=== PATIENT | male | born 1960 | race Caucasian/White ===

== ENCOUNTER 2018-10-27 12:20 | Emergency (ER) | payer OTHER ==
[~2018-10-27] VITALS: Ht 172.7 cm; Wt 95.3 kg
[~2018-10-27 12:20] MED LIST: ALBUTEROL SULF8.5 GM INH; AZITHROMYCIN250 MG ORAL; PROMETHAZINE-C118 M1 ORAL
[2018-10-27] MEDS ORDERED: ASPIR 8181 MG ORAL (12:29)
[2018-10-27] MEDS ORDERED: TENORMIN100 MG ORAL (12:29)
[2018-10-27 12:40] VITALS: BP 146/90
--- NOTE | 2018-10-27 12:41 | NUR ---
ED Nurse Note: pt walked in with c/o left leg pain, denies trauma. pt stated it started yesterday when he suddently feel like a electrical pain on the left leg, pt denies fall. seen by sarah mccrary. 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 will continue to monitor.
--- NOTE | 2018-10-27 13:00 | NUR ---
ED Nurse Note: US at the bedside
--- NOTE | 2018-10-27 13:15 | Diagnostic Imaging Report ---
Indication: Left leg pain for one day Technique: Grayscale and duplex images of the left lower extremity veins Comparison: none Findings: Grayscale duplex images demonstrate no evidence of intraluminal thrombus. Normal phasic Doppler waveforms, demonstrating normal augmentation response and no evidence of valvular insufficiency. Normal compressibility. Impression: Negative for evidence of left lower extremity venous thrombosis This agrees with the preliminary interpretation provided overnight by [facility].
--- NOTE | 2018-10-27 13:26 | Emergency Room Report ---
History of Present Illness General Chief Complaint: Pain Source: Patient Present Illness HPI 58-year-old male presents to the emergency department complaining of 8 out of 10 severity localized left posterior calf pain since yesterday. Patient reports that he was walking down a few stairs and near the bottom he took a step and felt a sharp electrical stabbing pain in the posterior calf he states the pain became persistent and his muscles felt tight. Patient reports initially he was experiencing the pain only when standing or walking but he states this morning he is also noticing it at rest as well. He reports some swelling in the calf denies swelling of the foot or ankle he denies appreciable trauma or fall he has a history of high blood pressure and hyperlipidemia he takes atorvastatin and metoprolol he also takes aspirin daily. Chest pain or shortness of breath. Denies paresthesias. Denies smoking hx, no recent travel, and denies erythema or changes to the skin color or temperature. No aggravating or relieving factors other than those mentioned. Allergies: Coded Allergies: No Known Allergies (Verified Allergy, Mild, 08/07/07) Patient History Past Medical History: see triage record Past Surgical History: none Pertinent Family History: none Reviewed Nursing Documentation: PMH: Agreed; PSxH: Agreed Nursing Documentation-PMH Past Medical History: No History, Except For Hx Hypertension: Yes Review of Systems All Other Systems: negative except mentioned in HPI Physical Exam Vital Signs Date Time Temp Pulse Resp B/P (MAP) Pulse Ox O2 Delivery O2 Flow Rate FiO2 10/27/18 12:26 98.2 71 19 146/90 (108) 95 Room Air Sp02 EP Interpretation: reviewed, normal General Appearance: no apparent distress, alert, GCS 15, non-toxic Head: normocephalic, atraumatic Eyes: bilateral eye normal inspection, bilateral eye PERRL ENT: hearing grossly normal, normal voice Neck: full range of motion Respiratory: chest non-tender, lungs clear, normal breath sounds, no respiratory distress, no wheezing, speaking full sentences Cardiovascular #1: regular rate, rhythm, no edema, normal capillary refill Cardiovascular #2: 2+ dorsalis pedis (R) - also 2+ and equal post. tib bilaterally, 2+ dorsalis pedis (L) Genitourinary: normal inspection Musculoskeletal: back normal, gait/station normal, normal range of motion, other - Positive bianca's sign. no visible calf swelling but the left calf was tight/contracted compared to the right, no erythema, no warmth, no obvious deformities, no pulsatile mass in the popliteal area. Neurologic: alert, oriented x3, responsive, motor strength/tone normal, sensory intact, speech normal, grossly normal Psychiatric: judgement/insight normal Skin: normal color Lymphatic: no adenopathy Medical Decision Making PA Attestation Dr. Dick Is my supervising Physician whom patient management has been discussed with. Diagnostic Impression: Primary Impression: Claudication of left lower extremity Additional Impression: Muscle spasm ER Course 58-year-old male presents to the emergency department complaining of 8 out of 10 severity localized left posterior calf pain since yesterday. Patient reports that he was walking down a few stairs and near the bottom he took a step and felt a sharp electrical stabbing pain in the posterior calf he states the pain became persistent and his muscles felt tight. Patient reports initially he was experiencing the pain only when standing or walking but he states this morning he is also noticing it at rest as well. He reports some swelling in the calf denies swelling of the foot or ankle he denies appreciable trauma or fall he has a history of high blood pressure and hyperlipidemia he takes atorvastatin and metoprolol he also takes aspirin daily. Chest pain or shortness of breath. Denies paresthesias. Denies smoking hx, no recent travel, and denies erythema or changes to the skin color or temperature. No aggravating or relieving factors other than those mentioned. Ddx considered but are not limited to Cellulitis, DVT, varicose vein,popliteal artery aneurysm, electrolyte imbalance, PAD,Venous insufficiency just to name a few. Vital signs: are WNL, pt. is afebrile H&PE are most consistent with muscle cramp/spasm due to HPI and PE findings must r/o DVT. ORDERS: - LE r/o DVT: Negative for DVT ED INTERVENTIONS: -Pt. declines pain medication. -I do not identify an emergent condition at this time. With current presentation , pt. is stable for close outpatient follow up and conservative treatment. D/ w pt. to return promptly to ED with worsening or new symptoms.- Pt. verbalizes' understanding and agreement with proposed treatment plan.proposed treatment plan. DISCHARGE: At this time pt. is stable for d/c to home. Will provide printed patient care instructions, and any necessary prescriptions. Care plan and follow up instructions have been discussed with the patient prior to discharge. CT/MRI/US Diagnostic Results CT/MRI/US Diagnostic Results : Imaging Test Ordered: Venous Duplex US of the Left LE Impression Negative for DVT, no decrease arterial flow was noted although focus was on the venous system.- Per radiology Last Vital Signs Date Time Temp Pulse Resp B/P (MAP) Pulse Ox O2 Delivery O2 Flow Rate FiO2 10/27/18 12:40 98.2 71 19 146/90 95 Room Air Disposition: HOME, SELF-CARE Condition: Stable Scripts Compression Socks, Medium (FUTURO RESTORING) 1 Each Each EACH PRN for claudication, #1 Prov: Miriam Ren 10/27/18 Ibuprofen* (MOTRIN*) 400 Mg Tablet 400 MG ORAL THREE TIMES A DAY for 7 Days, #21 TAB 0 Refills Prov: Miriam Ren 10/27/18 Methocarbamol* (ROBAXIN-750*) 750 Mg Tablet 750 MG PO QID for 7 Days, #28 TAB 0 Refills Prov: Miriam Ren 10/27/18 Referrals: NON PHYSICIAN (PCP) Patient Instructions: Muscle Cramps and Spasms, [id number], Peripheral Vascular Disease Additional Instructions: Take medications as directed. Follow up with a Primary Care Provider in 3-5 days, even if your symptoms have resolved. --Please review list of primary care clinics, if you do not already have a primary care provider Return sooner to ED if new symptoms occur, or current symptoms become worse. Do not drink alcohol, drive, or operate heavy machinery while taking Robaxin ( Muscle Relaxers) as this may cause drowsiness. - Please note that this Emergency Department Report was dictated using [employer] programmer technology software, occasionally this can lead to erroneous entry secondary to interpretation by the dictation equipment. Miriam Ren Oct 27, 2018 13:26
[2018-10-27] MEDS ORDERED: ROBAXIN-750750 MG PO (13:27)
[2018-10-27] MEDS ORDERED: IBUPROFEN400 MG ORAL (13:27)
[2018-10-27] MEDS ORDERED: FUTURO RESTORI1 EACH MC (13:27)
[2018-10-27 13:33] VITALS: BP 140/88
--- NOTE | 2018-10-27 13:33 | NUR ---
ER DISCHARGE NOTE: Patient is cleared to be discharged per ERMD, pt is aox4, on room air, with stable vital signs. pt was given dc and prescription instructions, pt was able to verbalize understanding, pt id band removed without complications. pt is able to ambulate with steady gait. pt took all belongings.
== END 2018-10-27 13:33 | disposition home or self-care (01) ==
LOC: EMR 12:36
DX: I73.9 Peripheral vascular disease, unspecified (principal); M62.838 Other muscle spasm; Z79.82 Long term (current) use of aspirin; I10 Essential (primary) hypertension
CPT/HCPCS: 93971; 99284